=== PATIENT | male | born 1965 | race Caucasian/White ===

== ENCOUNTER 2016-11-11 17:04 | Emergency (ER) | payer BC ==
[2016-11-11] VITALS (7 sets, daily range): BP systolic 145–198; BP diastolic 83–106; PULSE 83–115; RESP 16–20; TEMP 98.3; O2SAT 95–97
[~2016-11-11] VITALS: Ht 167.6 cm; Wt 108.3 kg
[~2016-11-11 17:04] MED LIST: ADVA100A INH; FLOV44AE IN; LOSA50
[2016-11-11] MEDS ORDERED: VENTAER INH (17:24)
[2016-11-11] MEDS ORDERED: LOSA50TA PO (17:24)
--- NOTE | 2016-11-11 17:41 | PD ---
HPI Chief Complaint: Hypertension Time Seen by Provider: 17:30 Travel History International Travel<30 days: No Contact w/Intl Traveler<30days: No Traveled to known affect area: No History of Present Illness HPI patient from [place] , visiting family in [place] area, c/o dizzy spells which made him check his bp at [facility] which read 200 over something and that made patient come to er...pt states he's out of bp meds for at least 1 week. denies cp/abd pain/n/v/d/ PFSH Past Medical History Asthma: Yes Cardiovascular Problems: Yes (HTN) COPD: Yes Diminished Hearing: No Hypertension: Yes Inguinal Hernia: Yes (UMBILLICAL) Tetanus Vaccination: > 5 Years Influenza Vaccination: No Past Surgical History Abdominal Surgery: Yes (HERNIA REPAIR) Cholecystectomy: Yes Other Surgery: Yes (UMBILLICAL HERNIA REPAIR) Social History Alcohol Use: No Tobacco Use: No Substance Use: No Allergies-Medications (Allergen,Severity, Reaction): Coded Allergies: No Known Allergies (Verified , 11/11/16) Reported Meds & Prescriptions Reported Meds & Active Scripts Active Hydrochlorothiazide 25 Mg Tab 25 Mg PO BID Reported Ventolin Hfa 18 GM Inh (Albuterol Sulfate) 90 Mcg/Act Aer 2 Puff INH Q4-6H PRN Losartan (Losartan Potassium) 50 Mg Tab 50 Mg PO DAILY Physical Exam Narrative GENERAL: SKIN: Warm and dry. HEAD: Atraumatic. Normocephalic. EYES: Pupils equal and round. No scleral icterus. No injection or drainage. fundoscopic exam: ENT: No nasal bleeding or discharge. Mucous membranes pink and moist. NECK: Trachea midline. No JVD. CARDIOVASCULAR: Regular rate and rhythm. RESPIRATORY: No accessory muscle use. Clear to auscultation. Breath sounds equal bilaterally. GASTROINTESTINAL: Abdomen soft, non-tender, nondistended. MUSCULOSKELETAL: Extremities without clubbing, cyanosis, or edema. No obvious deformities. NEUROLOGICAL: Awake and alert. No obvious cranial nerve deficits. Motor grossly within normal limits. Five out of 5 muscle strength in the arms and legs. Normal speech. PSYCHIATRIC: Appropriate mood and affect; insight and judgment normal. Data Data Last Documented VS Vital Signs Date Time Temp Pulse Resp B/P (MAP) Pulse Ox O2 Delivery O2 Flow Rate FiO2 11/11/16 20:01 11/11/16 19:54 83 18 97 Room Air 11/11/16 17:10 98.3 Orders Orders Electrocardiogram (11/11/16 17:30) Complete Blood Count With Diff (11/11/16 17:30) Comprehensive Metabolic Panel (11/11/16 17:30) B-Type Natriuretic Peptide (11/11/16 17:30) Thyroid Stimulating Hormone (11/11/16 17:30) Chest, Pa & Lat (11/11/16 17:30) Iv Access Insert/Monitor (11/11/16 17:30) Drug Screen, Random Urine (11/11/16 17:30) Ct Brain W/O Iv Contrast(Rout) (11/11/16 17:30) Labetalol Inj (Trandate Inj) (11/11/16 17:45) Clonidine (Catapres) (11/11/16 19:00) Labs Laboratory Tests Test 11/11/16 17:41 11/11/16 18:07 White Blood Count 5.9 TH/MM3 Red Blood Count 4.61 MIL/MM3 Hemoglobin 14.8 GM/DL Hematocrit 44.0 % Mean Corpuscular Volume 95.3 FL Mean Corpuscular Hemoglobin 32.1 PG Mean Corpuscular Hemoglobin Concent 33.7 % Red Cell Distribution Width 13.0 % Platelet Count 181 TH/MM3 Mean Platelet Volume 7.8 FL Neutrophils (%) (Auto) 75.8 % Lymphocytes (%) (Auto) 14.2 % Monocytes (%) (Auto) 8.1 % Eosinophils (%) (Auto) 1.2 % Basophils (%) (Auto) 0.7 % Neutrophils # (Auto) 4.5 TH/MM3 Lymphocytes # (Auto) 0.8 TH/MM3 Monocytes # (Auto) 0.5 TH/MM3 Eosinophils # (Auto) 0.1 TH/MM3 Basophils # (Auto) 0.0 TH/MM3 CBC Comment DIFF FINAL Differential Comment Blood Urea Nitrogen 11 MG/DL Creatinine 0.93 MG/DL Random Glucose 115 MG/DL Total Protein 8.3 GM/DL Albumin 3.5 GM/DL Calcium Level 8.7 MG/DL Alkaline Phosphatase 88 U/L Aspartate Amino Transf (AST/SGOT) 40 U/L Alanine Aminotransferase (ALT/SGPT) 30 U/L Total Bilirubin 1.1 MG/DL Sodium Level 138 MEQ/L Potassium Level 3.5 MEQ/L Chloride Level 103 MEQ/L Carbon Dioxide Level 25.8 MEQ/L Anion Gap 9 MEQ/L Estimat Glomerular Filtration Rate 85 ML/MIN B-Type Natriuretic Peptide 44 PG/ML Thyroid Stimulating Hormone 3rd Gen 1.160 uIU/ML Urine Opiates Screen NEG Urine Barbiturates Screen NEG Urine Amphetamines Screen NEG Urine Benzodiazepines Screen NEG Urine Cocaine Screen NEG Urine Cannabinoids Screen NEG MDM Medical Decision Making Medical Screen Exam Complete: Yes Emergency Medical Condition: Yes Medical Record Reviewed: Yes Interpretation(s) sinus tach, nl intervals, nl axis, sig q wave in inferior leads Differential Diagnosis ich v hypertensive emergency v stemi v renal failure v pulm edema/chf Narrative Course patient was thoroughly evaluated for any kind of hypertensive emergency but none was found...no e/o acute stemi but did find q waves which was explained to patient as a chronic conditioin from poorly controlling his bp by missing doses and running out of medication, explained that htn is a "silent killer" patient and family voice understanding. on another front, patient luckily did not have any e/o ICH, renal failure, stemi, pulm edema or congestive heart failure. Diagnosis Primary Impression: hypertensive urgency Patient Instructions: General Instructions, Hypertension (DC) Scripts Hydrochlorothiazide (Hydrochlorothiazide) 25 Mg Tab 25 MG PO BID, #60 TAB Prov: Keegan Whatley MD 11/11/16 Disposition: 01 DISCHARGE HOME Condition: Stable Keegan Whatley MD Nov 11, 2016 17:41
[2016-11-11 17:44] LABS: AUTOMATED NEUTROPHIL # 4.5 TH/MM3 (1.8-7.7); BASOPHIL % 0.7 % (0.0-2.0); EOSINOPHIL # 0.1 TH/MM3 (0-0.4); EOSINOPHIL % 1.2 % (0.0-4.0); LYMPH % 14.2 % (9.0-44.0); LYMPHOCYTE # 0.8 TH/MM3 (1.0-4.8); MEAN CELL VOLUME 95.3 FL (80.0-100.0); MEAN CORPUSCULAR HEMOGLOBIN 32.1 PG (27.0-34.0); MEAN CORPUSCULAR HGB CONC 33.7 % (32.0-36.0); MONO % 8.1 % (0.0-8.0); NEUT % 75.8 % (16.0-70.0); PLATELET COUNT 181 TH/MM3 (150-450); RED BLOOD COUNT 4.61 MIL/MM3 (4.50-5.90); WHITE BLOOD COUNT 5.9 TH/MM3 (4.0-11.0)
[2016-11-11 17:45] LABS: HEMO FLAGS DIFF FINAL
[2016-11-11] MEDS ORDERED: LABETALOL HCL 100 MG/20 ML VIAL IV PUSH ONE (17:45)
[2016-11-11 17:52] LABS: CHLORIDE 103 MEQ/L (98-107); POTASSIUM 3.5 MEQ/L (3.5-5.1); SODIUM (NA) 138 MEQ/L (136-145)
[2016-11-11 17:56] LABS: ANION GAP 9 MEQ/L (5-15); BICARBONATE 25.8 MEQ/L (21.0-32.0); BLOOD UREA NITROGEN 11 MG/DL (7-18)
[2016-11-11 17:59] LABS: ALT (GPT) 30 U/L (12-78); AST (GOT) 40 U/L (15-37); GLOMERULAR FILTRATION RATE 85 ML/MIN (>89)
[2016-11-11 18:01] LABS: TOTAL BILIRUBIN ADULT 1.1 MG/DL (0.2-1.0)
[2016-11-11 18:02] LABS: ALKALINE PHOSPHATASE 88 U/L (45-117)
--- NOTE | 2016-11-11 18:03 | RADRPT ---
EXAM DATE/TIME: 11/11/2016 17:37 [facility] COMPARISON: CHEST PA & LAT, January 09, 2015, 16:46. INDICATIONS : Elevated blood pressure, lightheadedness and dizziness. MEDICAL HISTORY : Hypertension. Asthma. Kidney disorder, unspecified. SURGICAL HISTORY : Cholecystectomy. ENCOUNTER: Initial ACUITY: 2 days PAIN SCORE: 0/10 LOCATION: Chest. FINDINGS: PA and lateral views of the chest demonstrate the lungs to be symmetrically aerated without evidence of mass, infiltrate or effusion. The cardiomediastinal contours are unremarkable. Osseous structure s are intact. CONCLUSION: No acute disease. Adam Wilburn MD on November 11, 2016 at 18:01 Board Certified Radiologist. This report was verified electronically.
--- NOTE | 2016-11-11 18:19 | RADRPT ---
EXAM DATE/TIME: 11/11/2016 18:05 [facility] COMPARISON: No previous studies available for comparison. INDICATIONS : Syncope and hypertension today. RADIATION DOSE: 65.40 CTDIvol (mGy) MEDICAL HISTORY : Hypertension. Chronic obstructive pulmonary disease. SURGICAL HISTORY : Cholecystectomy. ENCOUNTER: Initial ACUITY: 1 day PAIN SCALE: 0/10 LOCATION: Bilateral head TECHNIQUE: Multiple contiguous axial images were obtained of the head. Using automated exposure control and adj ustment of the mA and/or kV according to patient size, radiation dose was kept as low as reasonably a chievable to obtain optimal diagnostic quality images. DICOM format image data is available electro nically for review and comparison. FINDINGS: CEREBRUM: The ventricles are normal for age. No evidence of midline shift, mass lesion, hemorrhage or acute in farction. No extra-axial fluid collections are seen. POSTERIOR FOSSA: The cerebellum and brainstem are intact. The 4th ventricle is midline. The cerebellopontine angle i s unremarkable. EXTRACRANIAL: The visualized portion of the orbits is intact. SKULL: The calvaria is intact. No evidence of skull fracture. CONCLUSION: Negative noncontrast CT Adam Wilburn MD on November 11, 2016 at 18:14 Board Certified Radiologist. This report was verified electronically.
[2016-11-11] MEDS ORDERED: HYDR25TA5 PO (18:57)
[2016-11-11] MEDS ORDERED: cloNIDine HCL 0.1 MG TAB PO ONE (19:00)
--- NOTE | 2016-11-12 13:51 | EKG ---
Date Performed: 11/11/2016 Time Performed: 17:40:02 PTAGE: 51 years EKG: SINUS TACHYCARDIA POSSIBLE INFERIOR MYOCARDIAL INFARCTION ABNORMAL ECG Compared to prior tr acing no significant change PREVIOUS TRACING : 01/09/2015 15.05 DOCTOR: Vinh Duran Interpretating Date/Time 11/12/2016 13:47:50
== END 2016-11-11 20:04 | disposition home or self-care (01) ==
LOC: PHED 17:04
DX: I16.0 Hypertensive urgency (principal); R94.31 Abnormal electrocardiogram [ECG] [EKG]; I10 Essential (primary) hypertension; Z79.899 Other long term (current) drug therapy; Z87.09 Personal history of other diseases of the respiratory system; Z86.79 Personal history of other diseases of the circulatory system
CPT/HCPCS: 70450; 71020; 80053; 80307; 83880; 84443; 85025; 93005

== ENCOUNTER 2017-12-22 17:08 | Inpatient (IN) ==
[2017-12-22] MEDS ORDERED: Sod Chloride 0.9% Inj 1,000 ML IV.SIG SCH ×2 (17:30→20:30)
[2017-12-22 17:43] LABS: Baso % (Auto) 0.9 % (0.0-2.0); Eos # (Auto) 0.1 th/mm3 (0.0-0.4); Eos % (Auto) 3.2 % (0.0-4.0); Hematocrit 40.9 % (39.0-51.0); Hemoglobin 13.9 gm/dL (13.0-17.0); Lymph # (Auto) 0.8 th/mm3 (1.0-4.8); Lymph % (Auto) 17.8 % (9.0-44.0); Mean Corpuscular Hemoglobin 34.3 pg (27.0-34.0); Mean Corpuscular Volume 100.8 fL (80.0-100.0); Mean Platelet Volume 8.4 fL (7.0-11.0); Mono # (Auto) 0.4 th/mm3 (0.0-0.9); Mono % (Auto) 9.3 % (0.0-8.0); Neut # (Auto) 3.2 th/mm3 (1.8-7.7); Neut % (Auto) 68.8 % (16.0-70.0); Platelet Count 118 th/mm3 (150-450); Red Blood Count 4.05 mil/mm3 (4.50-5.90); Red Cell Distribution Width 13.7 % (11.6-17.2); White Blood Count 4.5 th/mm3 (4.0-11.0)
[2017-12-22 17:53] LABS: Chloride 105 meq/L (98-107); Potassium 3.5 meq/L (3.5-5.1); Sodium 139 meq/L (136-145)
[2017-12-22 17:56] LABS: Calcium 8.2 mg/dL (8.5-10.1)
[2017-12-22 17:57] LABS: Albumin 3.2 g/dL (3.4-5.0); Anion Gap 9 meq/L (5-15); Blood Urea Nitrogen 11 mg/dL (7-18); Carbon Dioxide 25.5 meq/L (21.0-32.0); Glucose,Random 150 mg/dL (74-106)
[2017-12-22 18:00] LABS: Alanine Aminotransferase 39 U/L (12-78); Aspartate Aminotransferase 68 U/L (15-37); Glomerular Filtration Rate Greater Than 89 mL/min (>89)
[2017-12-22 18:02] LABS: Total Protein 7.9 g/dL (6.4-8.2)
[2017-12-22 18:03] LABS: Alkaline Phosphatase 120 U/L (45-117)
--- NOTE | 2017-12-22 18:13 | XR ---
EXAM DATE: 12/22/2017 5:25 PM EDT AGE/SEX: 52 years / Male INDICATIONS: Shortness of breath and mid chest pain. CLINICAL DATA: This is the patient's initial encounter. Patient reports that signs and symptoms have been present for 1 day and indicates a pain score of 6/10. MEDICAL/SURGICAL HISTORY: Asthma. Hypertension. None. COMPARISON: [facility], CHEST PA & LAT, 11/11/2016. . FINDINGS: A single AP view of the chest demonstrates the lungs to be symmetrically aerated without evidence of mass, infiltrate or effusion. The cardiomediastinal contours are unremarkable. Osseous structures a re intact. CONCLUSION: No acute findings. Electronically signed by: Fabrice Irvin MD 12/22/2017 6:12 PM EDT
--- NOTE | 2017-12-22 18:46 | ED ---
HPI General Chief Complaint: Chest Pain Stated Complaint: Chest Pain Time Seen by Provider: 12/22/17 17:24 Source: patient Mode of arrival: ambulatory Limitations: no limitations History of Present Illness HPI narrative: Patient is a 52-year-old male, past medical history significant for hypertension and asthma, who presents with complaint of chest pain for the last several hours that is substernal in nature associated with dyspnea. He is not sure if it changes with exertion. No fever, chills, cough. No leg swelling or immobilization. He does admit to some diarrhea several days ago that has since passed in addition to vomiting that is no longer present. He does drink alcohol regularly and has not had any alcoholic beverages for at least 24 hours. complaint: Reports chest pain STEMI Alert: No Onset (ago): hour(s) Duration: constant Onset: during rest Pain location: Reports substernal Severity: moderate Quality: Reports heaviness Pain radiation: Reports none Relieving factors: nothing Exacerbating factors: nothing Associated symptoms: Reports dyspnea Treatments prior to arrival chest pain: Reports none Related Data Home Medications Medication Instructions Recorded Confirmed albuterol sulfate [Ventolin HFA] 2 puff INHALATION Q4-6H PRN 09/21/17 12/22/17 metoprolol tartrate 50 mg PO DAILY 12/23/17 12/23/17 Allergies Allergy/AdvReac Type Severity Reaction Status Date / Time No Known Allergies Allergy Verified 12/22/17 17:24 Review of Systems ROS: all other systems reviewed are negative [facility] Medical History Medical History Asthma (Acute) Hypertension (Acute) Surgical History Surgical History H/O umbilical hernia repair (Acute) Hx of cholecystectomy (Acute) Family History Family History Other Alcohol abuse by father Heart disease Social History Social History Substance History: Active Abuse Second Hand Smoke Exposure: No Smoking Status: Never smoker How Often Do You Have a Drink Containing Alcohol: 4 or more times a week Recent Travel in [facility] within the Last 8 Weeks: No Recent Out of Country Travel within the Last 8 Weeks: No Immunization History Tetanus Immunization: Unsure Exam Narrative Exam Narrative: GENERAL: Well-appearing male in no acute distress SKIN: Focused skin assessment warm/dry. HEAD: Atraumatic. Normocephalic. EYES: Pupils equal and round. No scleral icterus. No injection or drainage. ENT: No nasal bleeding or discharge. Mucous membranes pink and moist. NECK: Trachea midline. No JVD. CARDIOVASCULAR: Tachycardic but regular. No murmur appreciated. Intact and equal peripheral pulses. RESPIRATORY: No accessory muscle use. Clear to auscultation. Breath sounds equal bilaterally. GASTROINTESTINAL: Abdomen soft, non-tender, nondistended. Hepatic and splenic margins not palpable. MUSCULOSKELETAL: No obvious deformities. No clubbing. No cyanosis. No edema. NEUROLOGICAL: Awake and alert. No obvious cranial nerve deficits. Normal strength throughout. No numbness. Tremor present. Normal speech. PSYCHIATRIC: Anxious Course Initial Documented Vital Signs Blood Pressure 188/90 H 12/22/17 17:25 Pulse Oximetry 98 12/22/17 17:25 Last Documented Vital Signs Temperature 99.8 F H 12/24/17 12:00 Pulse Rate 73 12/24/17 12:00 Respiratory Rate 25 H 12/24/17 12:00 Blood Pressure 114/67 12/24/17 12:00 Pulse Oximetry 73 L 12/24/17 12:00 Sign Out Sign Out Data: Patient Sign Out occurred on 12/22/17 at 19:17. Patient's care was discussed, and care was transferred from Amber Taylor MD to Mayra Torres MD. Sign Out Comment: CTA and re-eval after fluids/ativan. Dispo per results and re -eval. Last updated by Amber Taylor MD at 12/22/17 18:51 Post-Handoff Eval: Accepted in transfer of care from Dr. Taylor for follow-up of pending imaging study and disposition Medical Decision Making MDM Narrative Medical decision making narrative: Patient is a 52-year-old male who presents with complaint of chest pain. He was tachycardic, tremulous, hypertensive on arrival and seemed to be in alcohol withdrawal at which time IV was established and he was given fluids and Ativan which had to be redosed. Labs are relatively unremarkable except for slightly elevated d-dimer for which a CTA has been ordered. CTA and reevaluation pending at time of checkout. At 8:25 PM patient remains hypertensive and tachycardic and tremulous for alcohol withdrawal CIWA precautions will be initiated; pulmonary CTA results remain pending. Medical Screen Exam Complete: Yes Emergency Medical Condition: Yes Differential Diagnosis Differential Diagnosis: Differential diagnosis includes but is not limited to acute coronary syndrome, electrolyte abnormality, pulmonary embolism, alcohol withdrawal. Medical Records Medical records reviewed: Yes I reviewed the patient's medical records. Lab Data Lab results reviewed: Yes I reviewed the patient's lab results. Lab results narrative: Elevated d-dimer. Result diagrams: 12/23/17 04:26 12/23/17 04:26 Lab Results 12/22/17 12/22/17 12/22/17 Range/Units 17:40 17:40 17:40 CBC w Diff Auto diff final WBC 4.5 (4.0-11.0) th/mm3 RBC 4.05 L (4.50-5.90) mil/mm3 Hgb 13.9 (13.0-17.0) gm/dL Hct 40.9 (39.0-51.0) % MCV 100.8 H (80.0-100.0) fL MCH 34.3 H (27.0-34.0) pg MCHC 34.0 (32.0-36.0) % RDW 13.7 (11.6-17.2) % Plt Count 118 L (150-450) th/mm3 MPV 8.4 (7.0-11.0) fL Neut % (Auto) 68.8 (16.0-70.0) % Lymph % (Auto) 17.8 (9.0-44.0) % Perkins % (Auto) 9.3 H (0.0-8.0) % Eos % (Auto) 3.2 (0.0-4.0) % Baso % (Auto) 0.9 (0.0-2.0) % Neut # (Auto) 3.2 (1.8-7.7) th/mm3 Lymph # (Auto) 0.8 L (1.0-4.8) th/mm3 Perkins # (Auto) 0.4 (0.0-0.9) th/mm3 Eos # (Auto) 0.1 (0.0-0.4) th/mm3 Baso # (Auto) 0.0 (0.0-0.2) th/mm3 WBC Differential . Differential Comment . D-Dimer Quant (PE/DVT) 0.66 H (0.00-0.50) mg/L FEU Sodium 139 (136-145) meq/L Potassium 3.5 (3.5-5.1) meq/L Chloride 105 (98-107) meq/L Carbon Dioxide 25.5 (21.0-32.0) meq/L Anion Gap 9 (5-15) meq/L BUN 11 (7-18) mg/dL Creatinine 0.83 (0.60-1.30) mg/dL Estimated GFR Greater than 89 (>89) mL/min POC Glucose (68-110) mg/dl Random Glucose 150 H (74-106) mg/dL Calcium 8.2 L (8.5-10.1) mg/dL Magnesium (1.5-2.5) mg/dL Total Bilirubin 1.3 H (0.2-1.0) mg/dL AST 68 H (15-37) U/L ALT 39 (12-78) U/L Alkaline Phosphatase 120 H (45-117) U/L Total Creatine Kinase (39-308) U/L CK-MB (CK-2) (0.5-3.6) ng/mL Troponin I Less than 0.02 L (0.02-0.05) ng/mL B-Natriuretic Peptide (0-100) pg/mL Total Protein 7.9 (6.4-8.2) g/dL Albumin 3.2 L (3.4-5.0) g/dL 12/22/17 12/22/17 12/22/17 Range/Units 17:40 20:15 20:15 CBC w Diff WBC (4.0-11.0) th/mm3 RBC (4.50-5.90) mil/mm3 Hgb (13.0-17.0) gm/dL Hct (39.0-51.0) % MCV (80.0-100.0) fL MCH (27.0-34.0) pg MCHC (32.0-36.0) % RDW (11.6-17.2) % Plt Count (150-450) th/mm3 MPV (7.0-11.0) fL Neut % (Auto) (16.0-70.0) % Lymph % (Auto) (9.0-44.0) % Perkins % (Auto) (0.0-8.0) % Eos % (Auto) (0.0-4.0) % Baso % (Auto) (0.0-2.0) % Neut # (Auto) (1.8-7.7) th/mm3 Lymph # (Auto) (1.0-4.8) th/mm3 Perkins # (Auto) (0.0-0.9) th/mm3 Eos # (Auto) (0.0-0.4) th/mm3 Baso # (Auto) (0.0-0.2) th/mm3 WBC Differential Differential Comment D-Dimer Quant (PE/DVT) (0.00-0.50) mg/L FEU Sodium (136-145) meq/L Potassium (3.5-5.1) meq/L Chloride (98-107) meq/L Carbon Dioxide (21.0-32.0) meq/L Anion Gap (5-15) meq/L BUN (7-18) mg/dL Creatinine (0.60-1.30) mg/dL Estimated GFR (>89) mL/min POC Glucose (68-110) mg/dl Random Glucose (74-106) mg/dL Calcium (8.5-10.1) mg/dL Magnesium 1.5 (1.5-2.5) mg/dL Total Bilirubin (0.2-1.0) mg/dL AST (15-37) U/L ALT (12-78) U/L Alkaline Phosphatase (45-117) U/L Total Creatine Kinase 109 (39-308) U/L CK-MB (CK-2) 1.9 (0.5-3.6) ng/mL Troponin I Less than 0.02 L (0.02-0.05) ng/mL B-Natriuretic Peptide 55 (0-100) pg/mL Total Protein (6.4-8.2) g/dL Albumin (3.4-5.0) g/dL 12/22/17 12/23/17 12/23/17 Range/Units 22:44 04:26 04:26 CBC w Diff Auto diff final WBC 4.4 (4.0-11.0) th/mm3 RBC 3.51 L (4.50-5.90) mil/mm3 Hgb 12.5 L (13.0-17.0) gm/dL Hct 35.7 L (39.0-51.0) % MCV 101.6 H (80.0-100.0) fL MCH 35.5 H (27.0-34.0) pg MCHC 34.9 (32.0-36.0) % RDW 13.6 (11.6-17.2) % Plt Count 101 L (150-450) th/mm3 MPV 8.6 (7.0-11.0) fL Neut % (Auto) 62.7 (16.0-70.0) % Lymph % (Auto) 23.3 (9.0-44.0) % Perkins % (Auto) 9.2 H (0.0-8.0) % Eos % (Auto) 4.0 (0.0-4.0) % Baso % (Auto) 0.8 (0.0-2.0) % Neut # (Auto) 2.8 (1.8-7.7) th/mm3 Lymph # (Auto) 1.0 (1.0-4.8) th/mm3 Perkins # (Auto) 0.4 (0.0-0.9) th/mm3 Eos # (Auto) 0.2 (0.0-0.4) th/mm3 Baso # (Auto) 0.0 (0.0-0.2) th/mm3 WBC Differential . Differential Comment . D-Dimer Quant (PE/DVT) (0.00-0.50) mg/L FEU Sodium 141 (136-145) meq/L Potassium 3.3 L (3.5-5.1) meq/L Chloride 108 H (98-107) meq/L Carbon Dioxide 24.6 (21.0-32.0) meq/L Anion Gap 8 (5-15) meq/L BUN 10 (7-18) mg/dL Creatinine 0.72 (0.60-1.30) mg/dL Estimated GFR Greater than 89 (>89) mL/min POC Glucose 86 (68-110) mg/dl Random Glucose 84 (74-106) mg/dL Calcium 7.5 L (8.5-10.1) mg/dL Magnesium (1.5-2.5) mg/dL Total Bilirubin 2.9 H (0.2-1.0) mg/dL AST 52 H (15-37) U/L ALT 30 (12-78) U/L Alkaline Phosphatase 90 (45-117) U/L Total Creatine Kinase (39-308) U/L CK-MB (CK-2) (0.5-3.6) ng/mL Troponin I (0.02-0.05) ng/mL B-Natriuretic Peptide (0-100) pg/mL Total Protein 6.7 D (6.4-8.2) g/dL Albumin 2.7 L (3.4-5.0) g/dL 12/23/17 12/23/17 12/23/17 Range/Units 07:55 12:28 16:34 CBC w Diff WBC (4.0-11.0) th/mm3 RBC (4.50-5.90) mil/mm3 Hgb (13.0-17.0) gm/dL Hct (39.0-51.0) % MCV (80.0-100.0) fL MCH (27.0-34.0) pg MCHC (32.0-36.0) % RDW (11.6-17.2) % Plt Count (150-450) th/mm3 MPV (7.0-11.0) fL Neut % (Auto) (16.0-70.0) % Lymph % (Auto) (9.0-44.0) % Perkins % (Auto) (0.0-8.0) % Eos % (Auto) (0.0-4.0) % Baso % (Auto) (0.0-2.0) % Neut # (Auto) (1.8-7.7) th/mm3 Lymph # (Auto) (1.0-4.8) th/mm3 Perkins # (Auto) (0.0-0.9) th/mm3 Eos # (Auto) (0.0-0.4) th/mm3 Baso # (Auto) (0.0-0.2) th/mm3 WBC Differential Differential Comment D-Dimer Quant (PE/DVT) (0.00-0.50) mg/L FEU Sodium (136-145) meq/L Potassium (3.5-5.1) meq/L Chloride (98-107) meq/L Carbon Dioxide (21.0-32.0) meq/L Anion Gap (5-15) meq/L BUN (7-18) mg/dL Creatinine (0.60-1.30) mg/dL Estimated GFR (>89) mL/min POC Glucose 93 119 H 111 H (68-110) mg/dl Random Glucose (74-106) mg/dL Calcium (8.5-10.1) mg/dL Magnesium (1.5-2.5) mg/dL Total Bilirubin (0.2-1.0) mg/dL AST (15-37) U/L ALT (12-78) U/L Alkaline Phosphatase (45-117) U/L Total Creatine Kinase (39-308) U/L CK-MB (CK-2) (0.5-3.6) ng/mL Troponin I (0.02-0.05) ng/mL B-Natriuretic Peptide (0-100) pg/mL Total Protein (6.4-8.2) g/dL Albumin (3.4-5.0) g/dL 12/23/17 12/24/17 12/24/17 Range/Units 21:28 07:47 12:38 CBC w Diff WBC (4.0-11.0) th/mm3 RBC (4.50-5.90) mil/mm3 Hgb (13.0-17.0) gm/dL Hct (39.0-51.0) % MCV (80.0-100.0) fL MCH (27.0-34.0) pg MCHC (32.0-36.0) % RDW (11.6-17.2) % Plt Count (150-450) th/mm3 MPV (7.0-11.0) fL Neut % (Auto) (16.0-70.0) % Lymph % (Auto) (9.0-44.0) % Perkins % (Auto) (0.0-8.0) % Eos % (Auto) (0.0-4.0) % Baso % (Auto) (0.0-2.0) % Neut # (Auto) (1.8-7.7) th/mm3 Lymph # (Auto) (1.0-4.8) th/mm3 Perkins # (Auto) (0.0-0.9) th/mm3 Eos # (Auto) (0.0-0.4) th/mm3 Baso # (Auto) (0.0-0.2) th/mm3 WBC Differential Differential Comment D-Dimer Quant (PE/DVT) (0.00-0.50) mg/L FEU Sodium (136-145) meq/L Potassium (3.5-5.1) meq/L Chloride (98-107) meq/L Carbon Dioxide (21.0-32.0) meq/L Anion Gap (5-15) meq/L BUN (7-18) mg/dL Creatinine (0.60-1.30) mg/dL Estimated GFR (>89) mL/min POC Glucose 152 H 88 87 (68-110) mg/dl Random Glucose (74-106) mg/dL Calcium (8.5-10.1) mg/dL Magnesium (1.5-2.5) mg/dL Total Bilirubin (0.2-1.0) mg/dL AST (15-37) U/L ALT (12-78) U/L Alkaline Phosphatase (45-117) U/L Total Creatine Kinase (39-308) U/L CK-MB (CK-2) (0.5-3.6) ng/mL Troponin I (0.02-0.05) ng/mL B-Natriuretic Peptide (0-100) pg/mL Total Protein (6.4-8.2) g/dL Albumin (3.4-5.0) g/dL Imaging Data Attestation: I personally reviewed and interpreted this imaging study as follows : My impression: No acute cardiopulmonary process. Radiologist's impression: Chest X-Ray 12/22/17 17:25 CONCLUSION: No acute findings. Chest CTA 12/22/17 18:26 CONCLUSION: 1. Negative for pulmonary embolus. No effusion or consolidation. Liver cirrhosis. ECG Data EKG Prior to Arrival: No Attestation: I personally reviewed and interpreted this ECG as follows: (Sinus tachycardia at a rate of [address] or T wave changes.) Discharge Plan Discharge Disposition Patient Disposition: 30 Still Patient Discharge Condition Condition: Stable Discharge Details Diagnosis: Atypical chest pain, Alcohol withdrawal Physicians Team ED Provider: Mayra Torres Primary Care Provider: Primary Care Physici,No Attending Provider: Be Caceres Status ED Status: Left Department Discharge Information Discharge Date/Time: 12/23/17 02:15
[2017-12-22] MEDS ORDERED: LORazepam 1 MG Tablet PO PRN (20:28)
[2017-12-22] MEDS ORDERED: Haloperidol Inj 5 MG/ML Ampul IV.PUSH PRN (20:28)
[2017-12-22] MEDS ORDERED: Thiamine Inj 100 MG in Sodium Chlor 0.9% Inj 100 ML IV.SIG ONE (20:29)
--- NOTE | 2017-12-22 20:46 | CT ---
EXAM DATE: 12/22/2017 6:53 PM EDT AGE/SEX: 52 years / Male INDICATIONS: Chest pressure today. Evaluate for pulmonary embolism. CLINICAL DATA: This is the patient's initial encounter. Patient reports that signs and symptoms have been present for 1 day and indicates a pain score of 7/10. MEDICAL/SURGICAL HISTORY: Asthma. Hypertension. Cholecystectomy. Umbilical hernia repair. RADIATION DOSE: 21.76 CTDI (mGy) COMPARISON: . TECHNIQUE: Volumetric scanning was performed using a multi-row detector CT scanner during bolus infu francie of 120 ml Omnipaque 350 (iohexol) nonionic water-soluble contrast as a single exam dose. The da ta was post processed with a variety of visualization algorithms including full volume maximum intens ity projection and sliding thin slab reformation. Using automated exposure control and adjustment of the mA and/or kV according to patient size, radiation dose was kept as low as reasonably achievable to obtain optimal diagnostic quality images. DICOM format image data is available electronically for review and comparison. FINDINGS: No filling defects identified within the pulmonary arteries to suggest pulmonary embolic disease. No lung consolidation. No pleural or pericardial effusion. Liver has a nodular appearance most characteristic of liver cirrhosis. Previous cholecystectomy. CONCLUSION: 1. Negative for pulmonary embolus. No effusion or consolidation. Liver cirrhosis. Electronically signed by: Fabrice Irvin MD 12/22/2017 8:45 PM EDT
[2017-12-22 21:20] LABS: Creatine Kinase 109 U/L (39-308)
[2017-12-22 21:32] LABS: Creatine Kinase MB 1.9 ng/mL (0.5-3.6)
[2017-12-23] MEDS: Sod Chloride 0.9% Inj 1,000 ML IV.CONT SCH ×3 (00:20→17:42)
[2017-12-23 05:33] LABS: Baso % (Auto) 0.8 % (0.0-2.0); Eos # (Auto) 0.2 th/mm3 (0.0-0.4); Hematocrit 35.7 % (39.0-51.0); Hemoglobin 12.5 gm/dL (13.0-17.0); Lymph % (Auto) 23.3 % (9.0-44.0); Mean Corpuscular HGB Conc 34.9 % (32.0-36.0); Mean Corpuscular Hemoglobin 35.5 pg (27.0-34.0); Mean Corpuscular Volume 101.6 fL (80.0-100.0); Mean Platelet Volume 8.6 fL (7.0-11.0); Mono # (Auto) 0.4 th/mm3 (0.0-0.9); Mono % (Auto) 9.2 % (0.0-8.0); Neut # (Auto) 2.8 th/mm3 (1.8-7.7); Neut % (Auto) 62.7 % (16.0-70.0); Platelet Count 101 th/mm3 (150-450); Red Blood Count 3.51 mil/mm3 (4.50-5.90); Red Cell Distribution Width 13.6 % (11.6-17.2); White Blood Count 4.4 th/mm3 (4.0-11.0)
[2017-12-23 05:48] LABS: Chloride 108 meq/L (98-107); Potassium 3.3 meq/L (3.5-5.1); Sodium 141 meq/L (136-145)
[2017-12-23 05:54] LABS: Calcium 7.5 mg/dL (8.5-10.1)
[2017-12-23 05:55] LABS: Albumin 2.7 g/dL (3.4-5.0); Anion Gap 8 meq/L (5-15); Blood Urea Nitrogen 10 mg/dL (7-18); Carbon Dioxide 24.6 meq/L (21.0-32.0); Glucose,Random 84 mg/dL (74-106)
[2017-12-23 05:58] LABS: Aspartate Aminotransferase 52 U/L (15-37); Glomerular Filtration Rate Greater Than 89 mL/min (>89)
[2017-12-23 06:00] LABS: Total Protein 6.7 g/dL (6.4-8.2)
[2017-12-23 06:01] LABS: Alkaline Phosphatase 90 U/L (45-117)
[2017-12-23 06:05] LABS: Alanine Aminotransferase 30 U/L (12-78)
[2017-12-23] MEDS: Multivitamin Inj 10 ML, Folic Acid Inj 1 MG in Sodium Chlor 0.9% Inj 500 ML IV.SIG SCH (10:22)
[2017-12-23] MEDS: chlordiazePOXIDE 25 MG Capsule PO SCH ×2 (13:00→20:41)
[2017-12-23] MEDS: Metoprolol Tartrate 50 MG Tablet PO SCH ×2 (13:00→20:41)
--- NOTE | 2017-12-23 13:04 | P.HP ---
History of Present Illness Primary Care Physician: No Primary Care Physician Chief Complaint: Chest pain, alcohol withdrawal History of Present Illness: 52-year-old male with history of asthma, abuse presented to the ED for evaluation of acute onset of substernal chest pain associated with dyspnea, diaphoresis and diarrhea times 24 hours duration. Patient has a daily consumption of 1 bottle of vodka per day, however on December 22, 2017 patient did not consume any alcohol. He has been visiting his girlfriend in [place]. Patient was admitted for alcohol withdrawal. During my exam this a.m., he reported improvement of chest pain however complaint of chest soreness. Continues to be tremulous on exam. Denies any GI bleed. Labile BP on exam with increased heart rate. Patient was quite anxious. - Diagnosis (1) Atypical chest pain (2) Alcohol withdrawal Inpatient Certification: I certify that the inpatient services were ordered in accordance with Medicare regulations governing the order. This includes certification that hospital inpatient services are reasonable and necessary and in the case of services not specified as inpatient-only under 42 CFR 419.22(n), that they are appropriately provided as inpatient services in accordance to with the 2-midnight benchmark under 43 CFR 412.3(e) Estimated Total Length of Stay (Days): 2 Plans for Post Hospital Care: Not yet determined Review of Systems All other systems reviewed negative except as stated in HPI PMFSH - History History Provided By: Patient - Medical History Medical History: Medical History (Last Reviewed 12/22/17 @ 18:42 by Amber Taylor MD) Asthma Hypertension - Surgical History Surgical History: Surgical History (Last Reviewed 12/22/17 @ 18:42 by Amber Taylor MD) H/O umbilical hernia repair Hx of cholecystectomy - Family History Family History: Family History (Last Updated 12/23/17 @ 12:58 by Pedro Shaver MD) Other Alcohol abuse by father Heart disease - Tobacco History Second Hand Smoke Exposure: No Tobacco Use In Past 30 Days: No Smoking Status: Never smoker - Alcohol History How Often Do You Have a Drink Containing Alcohol: 4 or more times a week - Substance Use History Substance History: Active Abuse - Travel History Recent Travel in the [place] Within the Last 8 Weeks: No Recent Travel Out of the Country Within the Last 8 Weeks: No - Immunization History Tetanus Immunization: Unsure Medications and Allergies Active Medications: Active Medications Chlordiazepoxide (Librium) 25 mg PO Q8H WILLA Clonidine HCl (Catapres) 0.1 mg PO Q6H PRN PRN Reason: SBP>160, DBP>90 Flumazenil (Romazecon Inj) 0.2 mg IV.PUSH Q1M PRN PRN Reason: OVERSEDATION Haloperidol Lactate (Haldol Inj) 1 mg IV.PUSH Q15M PRN PRN Reason: for severe agitation Sodium Chloride (Ns Inj) 1,000 mls @ 0 mls/hr IV.SIG BOLUS WILLA Last Infusion: 12/22/17 18:45 Dose: Infused Sodium Chloride (Ns Inj) 1,000 mls @ 0 mls/hr IV.SIG BOLUS WILLA Last Infusion: 12/22/17 23:25 Dose: Infused Sodium Chloride (Ns Inj) 1,000 mls @ 100 mls/hr IV.CONT .Q10H WILLA Last Admin: 12/23/17 00:20 Dose: Not Given Multivitamins 10 ml/ Folic (Acid 1 mg/ Sodium Chloride) 510.2 mls @ 125 mls/hr IV.SIG DAILY WILLA Stop: 12/28/17 08:59 Last Admin: 12/23/17 10:22 Dose: 125 mls/hr Lorazepam (Ativan Inj) 1 mg IV.PUSH Q4H PRN PRN Reason: for CIWA 8-10 Lorazepam (Ativan Inj) 2 mg IV.PUSH Q1H PRN PRN Reason: for CIWA 15-20 Lorazepam (Ativan Inj) 2 mg IV.PUSH Q2H PRN PRN Reason: for CIWA 11-14 Lorazepam (Ativan) 1 mg PO Q4H PRN PRN Reason: for CIWA 8-10 Lorazepam (Ativan) 2 mg PO Q2H PRN PRN Reason: for CIWA 11-14 Lorazepam (Ativan Inj) 2 mg IV.PUSH Q15M PRN PRN Reason: for CIWA > 20 Metoprolol Tartrate (Lopressor) 50 mg PO BID WILLA Ondansetron HCl (Zofran Inj) 4 mg IV.PUSH Q6H PRN PRN Reason: NAUSEA OR VOMITING Sodium Chloride (Ns Flush) 2 ml IV.FLUSH UNSCH PRN PRN Reason: FLUSH AFTER USING IV ACCESS Thiamine HCl (Vitamin B1) 100 mg PO DAILY [facility] Allergies Allergy/AdvReac Type Severity Reaction Status Date / Time No Known Allergies Allergy Verified 12/22/17 17:24 Home Medications Medication Instructions Recorded Confirmed Type albuterol sulfate [Ventolin HFA] 2 puff INHALATION Q4-6H PRN 09/21/17 12/22/17 History metoprolol tartrate 50 mg PO DAILY 12/23/17 12/23/17 History Exam Vital signs: Vital Signs 12/22/17 17:25 12/22/17 17:26 12/22/17 17:39 Temperature 98.4 F Pulse Rate 124 H Respiratory Rate 26 H Blood Pressure 188/90 H 190/103 H 179/81 H Pulse Oximetry 98 97 12/22/17 18:41 12/22/17 21:00 12/22/17 22:47 Temperature Pulse Rate 126 H 120 H 120 H Respiratory Rate 22 20 20 Blood Pressure 198/98 H 191/98 H 151/100 H Pulse Oximetry 98 98 96 12/23/17 01:15 12/23/17 02:15 12/23/17 02:29 Temperature 98.6 F 99.2 F Pulse Rate 112 H 107 H 107 H Respiratory Rate 20 20 35 H Blood Pressure 178/98 H 160/86 H 148/79 H Pulse Oximetry 96 96 96 12/23/17 03:12 12/23/17 04:00 12/23/17 08:00 Temperature 98.9 F 99.6 F Pulse Rate 107 H 107 H 118 H Respiratory Rate 26 H 37 H Blood Pressure 176/98 H 172/93 H Pulse Oximetry 94 L 96 12/23/17 10:00 12/23/17 11:32 12/23/17 12:00 Temperature 99.1 F Pulse Rate 106 H 124 H Respiratory Rate 29 H 31 H Blood Pressure 149/88 H 183/100 H Pulse Oximetry 96 95 12/23/17 12:21 12/23/17 12:42 Temperature Pulse Rate 116 H 112 H Respiratory Rate 38 H 36 H Blood Pressure 186/93 H 195/99 H Pulse Oximetry 96 95 Intake & Output 12/22/17 12/23/17 12/23/17 18:59 06:59 18:59 Intake Total 1000 / 1000 1101 / 1101 Output Total 950 / 950 Balance 1000 / 1000 151 / 151 Weight 111 kg 110.9 kg Intake: IV 1000 / 1000 1101 / 1101 NS Inj 1,000 ML @ Wide Open IV. 1000 / 1000 1000 / 1000 SIG BOLUS WILLA Rx#:[id number] Thiamine Inj 100 MG In NS Inj 101 / 101 100 ML @ 100 mls/hr IV.SIG ONCE ONE Rx#:[id number] Output: Urine 950 / 950 Other: Weight On Admission 110.9 kg Narrative: GENERAL: Anxious appearing male, bilateral upper extremity tremors SKIN: Warm and dry. HEAD: Atraumatic. Normocephalic. EYES: Pupils equal and round. No scleral icterus. No injection or drainage. ENT: No nasal bleeding or discharge. Mucous membranes pink and moist. NECK: Trachea midline. No JVD. CARDIOVASCULAR: Tachycardia regular rate and rhythm. RESPIRATORY: No accessory muscle use. Clear to auscultation. Breath sounds equal bilaterally. GASTROINTESTINAL: Abdomen soft, non-tender, nondistended. Hepatic and splenic margins not palpable. MUSCULOSKELETAL: Extremities without clubbing, cyanosis, or edema. No obvious deformities. NEUROLOGICAL: Awake and alert. No obvious cranial nerve deficits. Motor grossly within normal limits. Five out of 5 muscle strength in the arms and legs. Results - Labs CBC & Chem 7: 12/23/17 04:26 12/23/17 04:26 Labs: Laboratory Results - last 24 hr 12/22/17 12/22/17 12/22/17 17:40 17:40 17:40 CBC w Diff Auto diff final WBC 4.5 RBC 4.05 L Hgb 13.9 Hct 40.9 MCV 100.8 H MCH 34.3 H MCHC 34.0 RDW 13.7 Plt Count 118 L MPV 8.4 Neut % (Auto) 68.8 Lymph % (Auto) 17.8 [place] % (Auto) 9.3 H Eos % (Auto) 3.2 Baso % (Auto) 0.9 Neut # (Auto) 3.2 Lymph # (Auto) 0.8 L [place] # (Auto) 0.4 Eos # (Auto) 0.1 Baso # (Auto) 0.0 WBC Differential . Differential Comment . D-Dimer Quant (PE/DVT) 0.66 H Sodium 139 Potassium 3.5 Chloride 105 Carbon Dioxide 25.5 Anion Gap 9 BUN 11 Creatinine 0.83 Estimated GFR Greater than 89 POC Glucose Random Glucose 150 H Calcium 8.2 L Magnesium Total Bilirubin 1.3 H AST 68 H ALT 39 Alkaline Phosphatase 120 H Total Creatine Kinase CK-MB (CK-2) Troponin I Less than 0.02 L B-Natriuretic Peptide Total Protein 7.9 Albumin 3.2 L 12/22/17 12/22/17 12/22/17 17:40 20:15 20:15 CBC w Diff WBC RBC Hgb Hct MCV MCH MCHC RDW Plt Count MPV Neut % (Auto) Lymph % (Auto) [place] % (Auto) Eos % (Auto) Baso % (Auto) Neut # (Auto) Lymph # (Auto) [place] # (Auto) Eos # (Auto) Baso # (Auto) WBC Differential Differential Comment D-Dimer Quant (PE/DVT) Sodium Potassium Chloride Carbon Dioxide Anion Gap BUN Creatinine Estimated GFR POC Glucose Random Glucose Calcium Magnesium 1.5 Total Bilirubin AST ALT Alkaline Phosphatase Total Creatine Kinase 109 CK-MB (CK-2) 1.9 Troponin I Less than 0.02 L B-Natriuretic Peptide 55 Total Protein Albumin 12/22/17 12/23/17 12/23/17 22:44 04:26 04:26 CBC w Diff Auto diff final WBC 4.4 RBC 3.51 L Hgb 12.5 L Hct 35.7 L MCV 101.6 H MCH 35.5 H MCHC 34.9 RDW 13.6 Plt Count 101 L MPV 8.6 Neut % (Auto) 62.7 Lymph % (Auto) 23.3 [place] % (Auto) 9.2 H Eos % (Auto) 4.0 Baso % (Auto) 0.8 Neut # (Auto) 2.8 Lymph # (Auto) 1.0 [place] # (Auto) 0.4 Eos # (Auto) 0.2 Baso # (Auto) 0.0 WBC Differential . Differential Comment . D-Dimer Quant (PE/DVT) Sodium 141 Potassium 3.3 L Chloride 108 H Carbon Dioxide 24.6 Anion Gap 8 BUN 10 Creatinine 0.72 Estimated GFR Greater than 89 POC Glucose 86 Random Glucose 84 Calcium 7.5 L Magnesium Total Bilirubin 2.9 H AST 52 H ALT 30 Alkaline Phosphatase 90 Total Creatine Kinase CK-MB (CK-2) Troponin I B-Natriuretic Peptide Total Protein 6.7 D Albumin 2.7 L 12/23/17 12/23/17 07:55 12:28 CBC w Diff WBC RBC Hgb Hct MCV MCH MCHC RDW Plt Count MPV Neut % (Auto) Lymph % (Auto) [place] % (Auto) Eos % (Auto) Baso % (Auto) Neut # (Auto) Lymph # (Auto) [place] # (Auto) Eos # (Auto) Baso # (Auto) WBC Differential Differential Comment D-Dimer Quant (PE/DVT) Sodium Potassium Chloride Carbon Dioxide Anion Gap BUN Creatinine Estimated GFR POC Glucose 93 119 H Random Glucose Calcium Magnesium Total Bilirubin AST ALT Alkaline Phosphatase Total Creatine Kinase CK-MB (CK-2) Troponin I B-Natriuretic Peptide Total Protein Albumin - Imaging Impressions Chest X-Ray 12/22/17 17:25 CONCLUSION: No acute findings. Chest CTA 12/22/17 18:26 CONCLUSION: 1. Negative for pulmonary embolus. No effusion or consolidation. Liver cirrhosis. Caprini VTE Risk Assessment Caprini VTE Risk Assessment: No/Low Risk (score <= 1) Caprini Risk Assessment Model: Point Value = 1 Point Value = 2 Point Value = 3 Point Value = 5 Age 41-60 Minor surgery BMI > 25 kg/m2 Swollen legs Varicose veins or History of unexplained or recurrent spontaneous Oral contraceptives or hormone replacement Sepsis (< 1 month) Serious lung disease, including pneumonia (< 1 month) Abnormal pulmonary function Acute myocardial infarction Congestive heart failure (< 1 month) History of inflammatory bowel disease Medical patient at bed rest Age 61-74 Arthroscopic surgery Major open surgery (> 45 min) Laparoscopic surgery (> 45 min) Malignancy Confined to bed (> 72 hours) Immobilizing plaster cast Central venous access Age >= 75 History of VTE Family history of VTE Factor V Leiden Prothrombin [id number] Lupus anticoagulant Anticardiolipin antibodies Elevated serum homocysteine Heparin-induced thrombocytopenia Other congenital or acquired thrombophilia Stroke (< 1 month) Elective arthroplasty Hip, pelvis, or leg fracture Acute spinal cord injury (< 1 month) Prophylaxis Regimen: Total Risk Factor Score Risk Level Prophylaxis Regimen 0-1 Low Early ambulation 2 Moderate Order ONE of the following: *Sequential Compression Device (SCD) *Heparin 5000 units SQ BID 3-4 Higher Order ONE of the following medications: *Heparin 5000 units SQ TID *Enoxaparin/Lovenox 40 mg SQ daily (WT < 150 kg, CrCl > 30 mL/min) *Enoxaparin/Lovenox 30 mg SQ daily (WT < 150 kg, CrCl > 10-29 mL/min) *Enoxaparin/Lovenox 30 mg SQ BID (WT < 150 kg, CrCl > 30 mL/min) AND/OR *Sequential Compression Device (SCD) 5 or more Highest Order ONE of the following medications: *Heparin 5000 units SQ TID (Preferred with Epidurals) *Enoxaparin/Lovenox 40 mg SQ daily (WT < 150 kg, CrCl > 30 mL/min) *Enoxaparin/Lovenox 30 mg SQ daily (WT < 150 kg, CrCl > 10-29 mL/min) *Enoxaparin/Lovenox 30 mg SQ BID (WT < 150 kg, CrCl > 30 mL/min) AND *Sequential Compression Device (SCD) Assessment and Plan - Assessment (1) Atypical chest pain Code(s): R07.89 - Other chest pain Status: Acute (2) Alcohol withdrawal Code(s): F10.239 - Alcohol dependence with withdrawal, unspecified Status: Acute - Plan 52-year-old man Atypical chest pain CTA chest Negative for pulmonary embolus. No effusion or consolidation. Liver cirrhosis ACS ruled out per protocol cardiac enzyme and EKGs Unlikely ACS Now resolved Alcohol withdrawal Patient extensively counseled against Continue with CIWA protocol, rally pack and start Librium protocol Clonidine as needed for elevated BP Hypertension Resume beta-nasir Start clonidine as needed Asthma/COPD No exacerbation DuoNeb as needed DVT prophylaxis: Bilateral SCDs (2) Alcohol withdrawal Qualifiers: Complication of substance-induced condition: uncomplicated Qualified Code(s) : F10.230 - Alcohol dependence with withdrawal, uncomplicated
--- NOTE | 2017-12-23 16:12 | ECG ---
Date Performed: 12/22/2017 Time Performed: 17:13:03 PTAGE: 52 years EKG: SINUS TACHYCARDIA POSSIBLE RIGHT VENTRICULAR CONDUCTION DELAY Since previous tracing, no si gnificant change noted ABNORMAL RHYTHM ECG PREVIOUS TRACING : 11/11/2016 17.40 DOCTOR: Loni Monge Interpretating Date/Time 12/23/2017 16:11:06
[2017-12-24] MEDS: Sod Chloride 0.9% Inj 1,000 ML IV.CONT SCH ×2 (05:23→15:03)
[2017-12-24] MEDS: chlordiazePOXIDE 25 MG Capsule PO SCH (05:24)
[2017-12-24] MEDS: Metoprolol Tartrate 50 MG Tablet PO SCH ×2 (10:18→20:42)
[2017-12-24] MEDS: Multivitamin Inj 10 ML, Folic Acid Inj 1 MG in Sodium Chlor 0.9% Inj 500 ML IV.SIG SCH (10:19)
--- NOTE | 2017-12-24 11:48 | P.PNIM ---
Subjective Interval history: f/u; alcohol withdrawal in no acute distress. denies chest pain or sob. anxiety is better. Physical Exam Vital signs: Vital Signs 12/23/17 12:00 12/23/17 12:21 12/23/17 12:42 Temperature 99.1 F Pulse Rate 124 H 116 H 112 H Respiratory Rate 31 H 38 H 36 H Blood Pressure 183/100 H 186/93 H 195/99 H Pulse Oximetry 95 96 95 12/23/17 13:31 12/23/17 16:00 12/23/17 16:22 Temperature 98.9 F Pulse Rate 106 H 88 88 Respiratory Rate 12 36 H 37 H Blood Pressure 162/88 H 151/77 H Pulse Oximetry 98 98 12/23/17 16:42 12/23/17 17:00 12/23/17 17:02 Temperature Pulse Rate 86 84 86 Respiratory Rate 36 H 37 H 31 H Blood Pressure 152/76 H 167/91 H Pulse Oximetry 12/23/17 18:22 12/23/17 18:42 12/23/17 19:00 Temperature Pulse Rate 96 H 84 94 H Respiratory Rate 44 H 39 H 43 H Blood Pressure 140/64 138/71 Pulse Oximetry 12/23/17 19:02 12/23/17 19:22 12/23/17 20:00 Temperature Pulse Rate 90 86 84 Respiratory Rate 44 H 37 H 28 H Blood Pressure 168/87 H 152/76 H 135/92 H Pulse Oximetry 12/23/17 21:00 12/24/17 00:00 12/24/17 00:59 Temperature Pulse Rate 74 68 Respiratory Rate 27 H 26 H Blood Pressure 97/54 L Pulse Oximetry 95 12/24/17 02:59 12/24/17 04:00 12/24/17 08:00 Temperature 98.4 F Pulse Rate 72 72 70 Respiratory Rate 28 H 26 H 23 Blood Pressure 103/67 122/74 106/73 Pulse Oximetry 97 Intake & Output 12/23/17 12/24/17 12/24/17 18:59 06:59 18:59 Intake Total 1560.2 / 1560.2 700 / 700 Output Total 2350 / 2350 700 / 700 Balance -789.8 / -789.8 0 / 0 Weight 108.4 kg Intake: IV 510.2 / 510.2 MVI-12 Inj 10 ML Folvite Inj 1 510.2 / 510.2 MG In NS Inj 500 ML @ 125 mls/ hr IV.SIG DAILY WILLA Rx#: [id number] Oral 1050 / 1050 700 / 700 Output: Urine 2350 / 2350 700 / 700 Other: Date of Last Bowel Movement 12/23/17 12/23/17 # Bowel Movements 1 1 - Constitutional no acute distress - Routine Respiratory Exam Present: CTA bilaterally - Routine Cardiovascular Exam Present: RRR - Routine Abdominal Exam Present: soft - Routine Extremities Exam Comments: no pedal edema. - Routine Neurological Exam Present: alert, oriented X3 Results - Labs CBC & Chem 7: 12/23/17 04:26 12/23/17 04:26 Laboratory Results - last 24 hr 12/23/17 12/23/17 12/23/17 12:28 16:34 21:28 POC Glucose 119 H 111 H 152 H 12/24/17 07:47 POC Glucose 88 Assessment and Plan - Assessment (1) Atypical chest pain Code(s): R07.89 - Other chest pain Status: Acute (2) Alcohol withdrawal Code(s): F10.239 - Alcohol dependence with withdrawal, unspecified Status: Acute - Plan Atypical chest pain CTA chest Negative for pulmonary embolus. No effusion or consolidation. Liver cirrhosis ACS ruled out per protocol cardiac enzyme and EKGs Unlikely ACS Now resolved Alcohol withdrawal Patient extensively counseled against Continue with CIWA protocol, rally pack - will decrease librium Clonidine as needed for elevated BP Hypertension Resumed beta-nasir Start clonidine as needed Asthma/COPD No exacerbation DuoNeb as needed DVT prophylaxis: Bilateral SCDs Discharge Planning: possible dc home tomorrow if stable. (2) Alcohol withdrawal Qualifiers: Complication of substance-induced condition: uncomplicated Qualified Code(s) : F10.230 - Alcohol dependence with withdrawal, uncomplicated
[2017-12-24] MEDS ORDERED: Bisacodyl 10 MG Supp RECTAL PRN (14:09)
[2017-12-24 17:25] VITALS: O2SAT 97
[2017-12-24] MEDS: Senna/Docusate Sodium 8.6/50 MG Tablet PO SCH (20:42)
[2017-12-25] MEDS: Metoprolol Tartrate 50 MG Tablet PO SCH (08:39)
[2017-12-25] MEDS: Senna/Docusate Sodium 8.6/50 MG Tablet PO SCH (08:39)
[2017-12-25] MEDS: Multivitamin Inj 10 ML, Folic Acid Inj 1 MG in Sodium Chlor 0.9% Inj 500 ML IV.SIG SCH (08:40)
[2017-12-25 10:41] VITALS: BP 117/66; PULSE 64; RESP 24; TEMP 98.7
--- NOTE | 2017-12-25 11:00 | P.PNIM ---
Subjective Interval history: f/u; alcohol withdrawal in no acute distress. overall looks and feels better today. no chest pain. no new complaints. Physical Exam Vital signs: Vital Signs 12/24/17 12:00 12/24/17 16:00 12/24/17 20:00 Temperature 99.8 F H 98.2 F 97.7 F Pulse Rate 73 74 74 Respiratory Rate 25 H 24 26 H Blood Pressure 114/67 107/57 L 105/60 Pulse Oximetry 73 L 97 12/24/17 23:54 12/25/17 00:00 12/25/17 01:00 Temperature 98.4 F Pulse Rate 70 70 70 Respiratory Rate 27 H 31 H 26 H Blood Pressure 134/72 Pulse Oximetry 97 12/25/17 04:00 12/25/17 07:00 12/25/17 08:00 Temperature 98.4 F 98.7 F Pulse Rate 76 68 66 Respiratory Rate 41 H 19 19 Blood Pressure 110/58 L Pulse Oximetry 12/25/17 08:14 12/25/17 09:00 12/25/17 10:00 Temperature Pulse Rate 72 74 64 Respiratory Rate 18 18 24 Blood Pressure 117/66 Pulse Oximetry Intake & Output 12/24/17 12/25/17 12/25/17 18:59 06:59 18:59 Intake Total 1270.2 / 1270.2 Output Total 1140 / 1140 Balance 130.2 / 130.2 Weight 108.6 kg Intake: IV 510.2 / 510.2 MVI-12 Inj 10 ML Folvite Inj 1 510.2 / 510.2 MG In NS Inj 500 ML @ 125 mls/ hr IV.SIG DAILY [facility] Rx#: [id number] Oral 760 / 760 Output: Urine 1140 / 1140 Other: # Voids 4 Date of Last Bowel Movement 12/23/17 12/23/17 12/23/17 # Bowel Movements 0 - Constitutional no acute distress - Routine Respiratory Exam Present: CTA bilaterally - Routine Cardiovascular Exam Present: RRR - Routine Abdominal Exam Present: soft - Routine Extremities Exam Comments: no pedal edema. - Routine Neurological Exam Present: alert, oriented X3 Results - Labs CBC & Chem 7: 12/23/17 04:26 12/23/17 04:26 Laboratory Results - last 24 hr 12/24/17 12:38 POC Glucose 87 Assessment and Plan - Assessment (1) Atypical chest pain Code(s): R07.89 - Other chest pain Status: Acute (2) Alcohol withdrawal Code(s): F10.239 - Alcohol dependence with withdrawal, unspecified Status: Acute - Plan Atypical chest pain CTA chest Negative for pulmonary embolus. No effusion or consolidation. Liver cirrhosis ACS ruled out per protocol cardiac enzyme and EKGs Unlikely ACS Now resolved Alcohol withdrawal- better. Patient extensively counseled against will continue to taper down librium Hypertension Resumed beta-nasir Asthma/COPD No exacerbation DuoNeb as needed DVT prophylaxis: Bilateral SCDs Discharge Planning: dc home today. see med list. f/u; pcp. (2) Alcohol withdrawal Qualifiers: Complication of substance-induced condition: uncomplicated Qualified Code(s) : F10.230 - Alcohol dependence with withdrawal, uncomplicated
--- NOTE | 2017-12-25 11:01 | P.DS ---
Date of admission: 12/22/17 21:16 Primary care physician: No Primary Care Physician Brief History from admission: 52-year-old male with history of asthma, abuse presented to the ED for evaluation of acute onset of substernal chest pain associated with dyspnea, diaphoresis and diarrhea times 24 hours duration. Patient has a daily consumption of 1 bottle of vodka per day, however on December 22, 2017 patient did not consume any alcohol. He has been visiting his girlfriend in [place]. Patient was admitted for alcohol withdrawal. During my exam this a.m., he reported improvement of chest pain however complaint of chest soreness. Continues to be tremulous on exam. Denies any GI bleed. Labile BP on exam with increased heart rate. Patient was quite anxious. DS: Diagnosis - Discharge Diagnosis (1) Atypical chest pain Status: Acute (2) Alcohol withdrawal Status: Acute DS: Medications - Discharge Medications Prescriptions: chlordiazepoxide HCl 5 mg PO DIRECTED #7 cap multivitamin [Daily Multi-Vitamin] 1 tab PO DAILY 30 Days #30 tab thiamine HCl (vitamin B1) 100 mg PO DAILY 30 Days #30 tab DS: Summary Hospital Course: patient was admitted with atypical chest pain and alcohol withdrawal. he was started on Librium. his clinical condition improved. he remained pain free. he was counselled extensively about alcohol cessation. - Time Spent with Patient Total time spent providing and/or coordinating discharge services: Less than 30 minutes - Quality: VTE Deep Vein Thrombosis/Pulmonary Embolism Present on Admission: No Exam Vital signs: Vital Signs 12/24/17 12:00 12/24/17 16:00 12/24/17 20:00 Temperature 99.8 F H 98.2 F 97.7 F Pulse Rate 73 74 74 Respiratory Rate 25 H 24 26 H Blood Pressure 114/67 107/57 L 105/60 Pulse Oximetry 73 L 97 12/24/17 23:54 12/25/17 00:00 12/25/17 01:00 Temperature 98.4 F Pulse Rate 70 70 70 Respiratory Rate 27 H 31 H 26 H Blood Pressure 134/72 Pulse Oximetry 97 12/25/17 04:00 12/25/17 07:00 12/25/17 08:00 Temperature 98.4 F 98.7 F Pulse Rate 76 68 66 Respiratory Rate 41 H 19 19 Blood Pressure 110/58 L Pulse Oximetry 12/25/17 08:14 12/25/17 09:00 12/25/17 10:00 Temperature Pulse Rate 72 74 64 Respiratory Rate 18 18 24 Blood Pressure 117/66 Pulse Oximetry Intake & Output 12/24/17 12/25/17 12/25/17 18:59 06:59 18:59 Intake Total 1270.2 / 1270.2 Output Total 1140 / 1140 Balance 130.2 / 130.2 Weight 108.6 kg Intake: IV 510.2 / 510.2 MVI-12 Inj 10 ML Folvite Inj 1 510.2 / 510.2 MG In NS Inj 500 ML @ 125 mls/ hr IV.SIG DAILY WILLA Rx#: [id number] Oral 760 / 760 Output: Urine 1140 / 1140 Other: # Voids 4 Date of Last Bowel Movement 12/23/17 12/23/17 12/23/17 # Bowel Movements 0 - Constitutional no acute distress - Routine Respiratory Exam Present: CTA bilaterally - Routine Cardiovascular Exam Present: RRR - Routine Abdominal Exam Present: soft - Routine Extremities Exam Comments: no pedal edema. - Routine Neurological Exam Present: alert, oriented X3 Results Procedures completed during hospitalization: none. Labs on day of discharge: Labs from last 24 hours 12/24/17 12:38 POC Glucose 87 - Impressions ITS Impressions Chest X-Ray 12/22/17 17:25 CONCLUSION: No acute findings. Chest CTA 12/22/17 18:26 CONCLUSION: 1. Negative for pulmonary embolus. No effusion or consolidation. Liver cirrhosis. Discharge Plan - Discharge Disposition Patient Disposition: 01 Discharge Home - Discharge Condition Condition: Stable - Discharge Order Discharge Orders: Discharge Order (Routine); Ordered 12/25/17 Ordered By: Be Caceres - Physicians Team Primary Care Provider: Primary Care Jack,Patricia Attending Provider: Be Caceres
== END 2017-12-25 11:20 | disposition home or self-care (01) ==
LOC: PHED 17:08 → PHEDA 21:16 → PHICU 12-23 02:14
PROVIDERS: ADMIT Internal Medicine; ATTEND Internal Medicine